=== PATIENT | female | born 1955 | race Asian ===

== ENCOUNTER 2016-12-07 17:02 | Emergency (ER) | payer OTHER ==
[~2016-12-07] VITALS: Ht 165.1 cm; Wt 63.5 kg
[2016-12-07 17:20] VITALS: BP 167/72
[2016-12-07] MEDS ORDERED: Lidocaine 1% 10mg/ml/Epi 0.005mg/ml 30ml vial INJ ONE (17:30)
[2016-12-07] MEDS ORDERED: TdaP Vaccine 0.5ml Syr IM ONE (17:30)
[2016-12-07] MEDS ORDERED: Ketorolac 60mg Inj IM ONE (17:30)
[2016-12-07] MEDS ORDERED: Bacitracin Oint UD TOPIC ONE (17:30)
--- NOTE | 2016-12-07 17:32 | Emergency Room Report ---
History of Present Illness General Chief Complaint: Head Injury Source: Patient Present Illness HPI The patient presents with a head injury. She was standing on a chair and it slipped and she fell back and hit her head. She had bleeding and someone put dressing on it which stopped the bleeding. Her head feels heavy and she feels dizzy. She did not lose consciousness. The back of her head hurts. She denies other pain at this time. Pain 10/10, aching and sharp, not radiating, constant. No nausea or vomiting. No other extremity injuries. It has been more than 10 years for her last tetanus shot. She is taking medication for high blood pressure. Allergies: Coded Allergies: PENICILLINS (Verified Allergy, Unknown, 12/07/16) Patient History Past Medical History: see triage record Social History Narrative at home Now: No Reviewed Nursing Documentation: PMH: Agreed, PSxH: Agreed Nursing Documentation-PMH Hx Hypertension: Yes - HYPERTHYROIDISM. Review of Systems Constitutional: Reports: see HPI, weakness, Denies: fever Eye: Denies: blurred vision Cardiovascular: Denies: chest pain Gastrointestinal: Denies: abdominal pain Musculoskeletal: Reports: see HPI Skin: Reports: see HPI Psychiatric: Reports: see HPI Neurological: Reports: see HPI Hematologic/Lymphatic: Reports: see HPI Physical Exam Vital Signs Date Time Temp Pulse Resp B/P Pulse Ox O2 Delivery O2 Flow Rate FiO2 12/07/16 17:09 99.1 72 15 167/72 99 Room Air Sp02 EP Interpretation: reviewed, normal General Appearance: well appearing, no apparent distress, alert, GCS 15 Head: normocephalic, other - laceration occiput Eyes: bilateral eye EOMI, bilateral eye PERRL, bilateral eye normal inspection ENT: hearing grossly normal, normal voice Neck: full range of motion, supple, no bony tend Respiratory: chest non-tender, lungs clear, no respiratory distress, speaking full sentences Cardiovascular #1: regular rate, rhythm Cardiovascular #2: 2+ radial (R) Gastrointestinal: normal bowel sounds, non tender, soft Musculoskeletal: digits/nails normal, gait/station normal, normal range of motion, pelvis stable Neurologic: alert, oriented x3, classifier III-XII nml as tested, motor strength/tone normal, DTRs symmetric, sensory intact, cerebellar normal, normal gait, speech normal Psychiatric: depressed affect Skin: warm/dry, laceration - occiput 4 cm Procedures Laceration/Wound Repair Laceration/Wound Repair : Consent: Verbal Wound Location: head Wound's Depth, Shape: into muscle Wound Explored: clean Anesthesia: Lidocaine w/ Epi Volume Anesthetic (ccs): 6 Wound Repaired With: sam Layer Closure?: No Sterile Dressing Applied?: Yes Patient Tolerated: Well Complications: None Medical Decision Making Diagnostic Impression: Primary Impression: Acute head injury Qualified Codes: S09.90XA - Unspecified injury of head, initial encounter Additional Impressions: Scalp laceration Qualified Codes: S01.01XA - Laceration without foreign body of scalp, initial encounter Back contusion Qualified Codes: S20.229A - Contusion of unspecified back wall of thorax, initial encounter ER Course Patient post fall with head injury, laceration and wooziness. Ddx: contusion, concussion, IC bleed, laceration. No physical evidence of c spine injury or back injury. CT indicated. Tetanus and wound closure indicated. Also will treat pain. Wound cleaned and closed with sam. Tolerated well. CT negative. C/O some pain in upper shoulders. ROM of neck full without bone tenderness. Repeat neuro normal. Initial pain improved. Patient stable for outpatient observation and treatment. CT/MRI/US Diagnostic Results CT/MRI/US Diagnostic Results : Imaging Test Ordered: head Impression nl brain, bones and ST Last Vital Signs Date Time Temp Pulse Resp B/P Pulse Ox O2 Delivery O2 Flow Rate FiO2 12/07/16 19:14 99.1 97 15 167/72 99 Room Air Status: improved Disposition: HOME, SELF-CARE Condition: Improved Scripts Bacitracin (Bacitracin) 28.4 Gm Oint...g. 1 APPLIC TOPIC BID, #10 GM Prov: Cameron Gandhi M.D. 12/07/16 Ibuprofen* (MOTRIN*) 600 Mg Tablet 600 MG ORAL Q6H Y for For Pain, #20 TAB Prov: Cameron Gandhi M.D. 12/07/16 Tramadol Hcl* (ULTRAM*) 50 Mg Tablet 50 MG ORAL Q6H Y for For Pain, #8 TAB 0 Refills Prov: Cameorn Gandhi M.D. 12/07/16 Cameron Gandhi M.D. Dec 07, 2016 17:32
[2016-12-07] MEDS ORDERED: IBUPROFEN600 MG ORAL (18:49)
[2016-12-07] MEDS ORDERED: TRAMADOL HCL50 MG ORAL (18:49)
[2016-12-07] MEDS ORDERED: BACITRACIN15 GM TOPIC (18:49)
[2016-12-07 19:04] VITALS: BP 150/79
[2016-12-07 19:14] VITALS: BP 167/72
--- NOTE | 2016-12-09 12:56 | Diagnostic Imaging Report ---
Indications: A laceration to the back of head, status post trauma, CVA dizzy Technique: Spiral acquisitions obtained through the brain. Angled axial and coronal 5 x 5 mm slices were reconstructed. Total dose length product 1333 mGycm. CTDI vol(s) 70 mGy Comparison: None Findings: There is questionably a tiny cortical calcification in the right parietal lobe although this could just be an artifact image noise. There is a small area of scalp contusion with overlying skin sam indicating apparent laceration in the posterior parietal midline. Linear metallic foreign bodies are seen in the parietal scalp bilaterally. No acute intracranial hemorrhage or edema. No mass effect or midline shift. Normal dyer-white differentiation. Normal for age ventricles and extra axial CSF spaces. Visualized orbits and sinuses are unremarkable. Intact calvarium Impression: Evidence of parietal midline scalp soft tissue trauma Negative for acute intracranial bleed or mass effect This agrees with the preliminary interpretation provided overnight by Dr. Davalos Linear radiopaque foreign bodies in the scalp, suspect retained acupuncture needles. This finding was not described on the preliminary report, was discussed with Dr. Rodriguez in the emergency room at time of interpretation The CT scanner at [facility] is accredited by the [employer] and the scans are performed using protocols designed to limit radiation exposure to as low as reasonably achievable to attain images of sufficient resolution adequate for diagnostic evaluation.
== END 2016-12-07 19:14 | disposition home or self-care (01) ==
LOC: EMR 17:50
DX: S01.01XA Laceration without foreign body of scalp, initial encounter (principal); W01.0XXA Fall on same level from slipping, tripping and stumbling without subsequent striking against object, initial encounter; Y92.9 Unspecified place or not applicable; Z23 Encounter for immunization; I10 Essential (primary) hypertension; E05.90 Thyrotoxicosis, unspecified without thyrotoxic crisis or storm; R42 Dizziness and giddiness; Z88.0 Allergy status to penicillin
CPT/HCPCS: 70450; 90471; 90715; 96372

== ENCOUNTER 2016-12-14 06:56 | Emergency (ER) | payer OTHER ==
[~2016-12-14] VITALS: Ht 157.5 cm; Wt 52.2 kg
[~2016-12-14 06:56] MED LIST: BACITRACIN15 GM TOPIC; IBUPROFEN600 MG ORAL; TRAMADOL HCL50 MG ORAL
--- NOTE | 2016-12-14 07:27 | Emergency Room Report ---
History of Present Illness General Chief Complaint: Wound Recheck/Suture Removal Source: Patient Present Illness HPI 60 YO F here for staple removal to lac to occipital scalp. Lac repaired 1 week prior. Patient denies fever/chills, pain to area. No other issues. Previous doctor note does not specify how many sam were placed. Patient thinks 8 were placed. Allergies: Coded Allergies: PENICILLINS (Verified Allergy, Unknown, 12/07/16) Patient History Past Medical History: none Past Surgical History: none Pertinent Family History: none Social History: Denies: alcohol use, drug use, smoking Last Menstrual Period: none Now: No : 4 Immunizations: UTD Reviewed Nursing Documentation: PMH: Agreed, PSxH: Agreed Nursing Documentation-PMH Hx Hypertension: Yes Review of Systems All Other Systems: negative except mentioned in HPI Physical Exam Vital Signs Date Time Temp Pulse Resp B/P Pulse Ox O2 Delivery O2 Flow Rate FiO2 12/14/16 07:01 98.1 76 18 156/85 98 Room Air Sp02 EP Interpretation: reviewed, normal General Appearance: normal inspection, well appearing, no apparent distress, alert Head: other - 7 sam seen in occiput lac. No bleeding, sign of infection ENT: normal ENT inspection, hearing grossly normal, normal voice Neck: normal inspection, full range of motion, supple, no bony tend Respiratory: normal inspection, lungs clear, normal breath sounds, no respiratory distress, no retraction, no wheezing Gastrointestinal: normal inspection, normal bowel sounds, non tender, soft, no guarding, no hernia Genitourinary: no CVA tenderness Neurologic: normal inspection, alert, oriented x3, responsive, vp product management III-XII nml as tested, motor strength/tone normal, speech normal Psychiatric: normal inspection, judgement/insight normal, mood/affect normal Skin: normal inspection, normal color, no rash Lymphatic: normal inspection Medical Decision Making Diagnostic Impression: Primary Impression: Encounter for removal of sutures ER Course 7 sam removed No other acute issue in ED DC home Last Vital Signs Date Time Temp Pulse Resp B/P Pulse Ox O2 Delivery O2 Flow Rate FiO2 12/14/16 07:01 98.1 76 18 156/85 98 Room Air Status: improved Disposition: HOME, SELF-CARE Condition: Improved Patient Instructions: Suture Removal, Care After HERB MAHER M.D. Dec 14, 2016 07:27
[2016-12-14 07:28] VITALS: BP 152/83
== END 2016-12-14 07:35 | disposition home or self-care (01) ==
LOC: EMR 07:25
DX: S01.01XD Laceration without foreign body of scalp, subsequent encounter (principal); Z48.02 Encounter for removal of sutures
CPT/HCPCS: 99281